=== PATIENT | female | born 1990 | race Two or more races ===

== ENCOUNTER 2018-06-26 07:53 | Emergency (ER) | payer OTHER ==
[2018-06-26 08:14] VITALS: BP 145/90; PULSE 105; TEMP 97.9; BMI 43.5
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
[2018-06-26] MEDS ORDERED: IBUPROFEN 400 MG TABLET (FP) PO ONE ×2 (08:35→08:36)
== END 2018-06-26 08:43 | disposition home or self-care (01) ==
LOC: JERFT 07:53
DX: S46.811A Strain of other muscles, fascia and tendons at shoulder and upper arm level, right arm, initial encounter (principal); V43.52XA Car driver injured in collision with other type car in traffic accident, initial encounter; Y92.414 Local residential or business street as the place of occurrence of the external cause; Y93.89 Activity, other specified; Y99.8 Other external cause status
CPT/HCPCS: 99281-25

== ENCOUNTER 2022-02-26 10:30 | Emergency (ER) | payer OTHER ==
[2022-02-26 10:50] VITALS: BP 155/98; PULSE 110; TEMP 98.6; BMI 52.0
== END 2022-02-26 11:34 | disposition home or self-care (01) ==
LOC: FER 10:30
DX: M54.89 Other dorsalgia (principal); R07.0 Pain in throat; F41.9 Anxiety disorder, unspecified
CPT/HCPCS: 99283-25